=== PATIENT | male | born 1965 | race Caucasian/White ===

== ENCOUNTER 2017-02-24 19:04 | Emergency (ER) | payer BC, OTHER ==
[~2017-02-24] VITALS: Ht 177.8 cm; Wt 75.8 kg
[2017-02-24] MEDS ORDERED: SODIUM CHLORIDE FLUSH 10ML SYR IVF ONE (19:30)
[2017-02-24] MEDS ORDERED: SODIUM CHLORIDE 0.9% 1,000ML IVBOLUS ONE (19:30)
[2017-02-24] MEDS ORDERED: ONDANSETRON 2MG/ML, 2ML IVPush ONE ×2 (19:30→20:30)
[2017-02-24 19:55] LABS: PATH.CAST-FLAG NOT PRESENT; SPERM-FLAG NOT PRESENT; SRC-FLAG NOT PRESENT; XTAL-FLAG NOT PRESENT; YLC-FLAG NOT PRESENT
[2017-02-24 20:03] LABS: HEMATOCRIT 51.4 % (39.2-51.8); HEMOGLOBIN 17.6 g/dL (13.7-18.0); WHITE BLOOD COUNT 9.8 x10^3/uL (3.4-10)
[2017-02-24 20:10] LABS: BLOOD UREA NITROGEN 21 mg/dL (7-18)
[2017-02-24 20:11] LABS: ASPARTATE AMINO TRANSFERASE 17 U/L (15-37)
[2017-02-24] MEDS ORDERED: KETOROLAC 30 MG/1 ML ONE (20:28)
[2017-02-24] MEDS ORDERED: KETOROLAC 30 MG/1 ML IVPush ONE (20:30)
[2017-02-24 21:58] VITALS: BP 115/69
== END 2017-02-24 22:01 | disposition home or self-care (01) ==
LOC: ED 21:45
DX: K80.20 Calculus of gallbladder without cholecystitis without obstruction (principal)
CPT/HCPCS: 36415; 74176; 76700; 80053; 81001; 83690; 85025; 96361; 96374; 99285; J1885; J7030

== ENCOUNTER 2019-05-25 22:16 | Emergency (ER) | payer OTHER ==
[~2019-05-25] VITALS: Ht 177.8 cm; Wt 81.5 kg
--- NOTE | 2019-05-25 23:12 | NUR ---
THIS IS A 54Y M THAT COMES IN TONIGHT W/ C/O "STABBING BACK PAIN" LASTING 3WKS. PT STS PAIN WORSENED LAST NIGHT AND HE HAS BEEN UNABLE TO GET RELIEF. PT RESTING ON RADHA MANNING, FRIEND AT BEDSIDE. CALL LIGHT IN REACH
[2019-05-25] MEDS ORDERED: DIAZEPAM 5 MG TABLET ONE (23:29)
[2019-05-25] MEDS ORDERED: KETOROLAC 60 MG/2 ML ONE (23:29)
[2019-05-25] MEDS ORDERED: HYDROcodone/APAP 5/325 TABLET ONE (23:29)
[2019-05-25] MEDS ORDERED: KETOROLAC 30 MG/1 ML IM ONE (23:30)
[2019-05-25] MEDS ORDERED: HYDROcodone/APAP 5/325 TABLET PO ONE (23:30)
[2019-05-25] MEDS ORDERED: DIAZEPAM 5 MG TABLET PO ONE (23:30)
--- NOTE | 2019-05-25 23:30 | NUR ---
PT TO XRAY
[2019-05-25 23:32] LABS: BASOPHILS # (AUTO) 0.02 x10^3/uL (0-0.1); BASOPHILS % (AUTO) 0 % (0-1); EOSINOPHILS # (AUTO) 0.12 x10^3/uL (0-0.4); EOSINOPHILS % (AUTO) 1 % (1-7); LYMPHOCYTES # (AUTO) 1.52 x10^3/uL (1-3.4); LYMPHOCYTES % (AUTO) 15 % (22-44); MD NO; MEAN CORPUSCULAR HEMOGLOBIN 31.7 pg (27.5-34.5); MEAN CORPUSCULAR VOLUME 93.3 fL (81-97); MEAN PLATELET VOLUME 7.8 fL (7.4-10.4); MONOCYTES # (AUTO) 1.28 x10^3/uL (0.2-0.8); MONOCYTES % (AUTO) 13 % (2-9); NEUTROPHILS # (AUTO) 7.19 x10^3/uL (1.8-6.8); NEUTROPHILS % (AUTO) 71 % (42-75); PLATELET COUNT 310 x10^3/uL (130-400); RED BLOOD COUNT 4.42 x10^6/uL (4.38-5.82); RED CELL DISTRIBUTION WIDTH 15.9 % (9.4-14.8)
[2019-05-25 23:40] VITALS: BP 133/76
--- NOTE | 2019-05-25 23:40 | NUR ---
PT MEDICATED PER MAR, VSS, NADN
[2019-05-25 23:41] LABS: ALANINE AMINOTRANSFERASE 189 U/L (12-78); ALBUMIN 2.6 g/dL (3.4-5.0); ANION GAP 5 mmol/L (5-15); CALCIUM 8.2 mg/dL (8.5-10.1); CHLORIDE 105 mmol/L (98-107); CREATININE 0.82 mg/dL (0.7-1.3)
[2019-05-25 23:44] LABS: ALKALINE PHOSPHATASE 204 U/L (45-117); BILIRUBIN,TOTAL 0.6 mg/dL (0.2-1.0); TOTAL PROTEIN 7.6 g/dL (6.4-8.2)
== END 2019-05-26 01:20 | disposition home or self-care (01) ==
LOC: ED 23:17
DX: S39.012A Strain of muscle, fascia and tendon of lower back, initial encounter (principal); S29.012A Strain of muscle and tendon of back wall of thorax, initial encounter; X58.XXXA Exposure to other specified factors, initial encounter; Y93.89 Activity, other specified; Y92.89 Other specified places as the place of occurrence of the external cause; Y99.8 Other external cause status
CPT/HCPCS: 36415; 72110; 80053; 85025; 93005; 96372; 99284; J1885

== ENCOUNTER 2019-05-26 20:12 | Inpatient (IN) | payer OTHER ==
[~2019-05-26] VITALS: Ht 177.8 cm; Wt 81.3 kg
--- NOTE | 2019-05-26 20:47 | NUR ---
Pt moved to room
--- NOTE | 2019-05-26 21:00 | NUR ---
Patient came to ER [facility] c/o CP. Patient came to the ER yesterday for back pain. He states after he was discharged, he developed CP which has continued on into [facility]. The pain is increasing and he describes it as a heaviness. Patient has never had this pain before. He states he is also achy all over his body. Denies fevers. Addendum: 05/26/19 at 2103 by [email or web address] Patient appears uncomfortable but in no distress. Respirations even and unlabored.
[2019-05-26] MEDS ORDERED: MORPHINE SULFATE 4 MG/ML, 1ML ONE ×2 (21:40→22:05)
[2019-05-26] MEDS: MORPHINE SULFATE 4 MG/ML, 1ML IVPush PRN ×2 (21:42→22:11)
[2019-05-26 21:45] LABS: BASOPHILS # (AUTO) 0.02 x10^3/uL (0-0.1); BASOPHILS % (AUTO) 0 % (0-1); EOSINOPHILS % (AUTO) 1 % (1-7); LYMPHOCYTES # (AUTO) 1.42 x10^3/uL (1-3.4); LYMPHOCYTES % (AUTO) 17 % (22-44); MD NO; MEAN CORPUSCULAR HEMOGLOBIN 31.4 pg (27.5-34.5); MEAN CORPUSCULAR HGB CONC 33.7 g/dL (33.2-36.2); MEAN CORPUSCULAR VOLUME 93.4 fL (81-97); MEAN PLATELET VOLUME 7.6 fL (7.4-10.4); MONOCYTES # (AUTO) 1.11 x10^3/uL (0.2-0.8); MONOCYTES % (AUTO) 14 % (2-9); NEUTROPHILS # (AUTO) 5.53 x10^3/uL (1.8-6.8); NEUTROPHILS % (AUTO) 68 % (42-75); PLATELET COUNT 334 x10^3/uL (130-400); RED BLOOD COUNT 4.49 x10^6/uL (4.38-5.82); RED CELL DISTRIBUTION WIDTH 16.3 % (9.4-14.8)
--- NOTE | 2019-05-26 21:49 | NUR ---
PT C/O CP PAIN AND "ALL OVER BODY PAIN" 03/02. WAS SEEN HERE LAST NIGHT FOR BACK PAIN. STATES IT HAS BECOME PROGRESSIVELY WORSE. PT ROCKING BACK AND FORTH IN BED. SINUS TACHY ON MONITOR. IV ACCESS OBTAINED AND LABS SENT. PT MEDICATED PER JUL FOR PAIN. PT AWARE OF UA. NO FURTHER NEEDS EXPRESSED AT THIS TIME. CALL LIGHT IN REACH.
[2019-05-26 21:57] LABS: ALANINE AMINOTRANSFERASE 180 U/L (12-78); ALBUMIN 2.4 g/dL (3.4-5.0); ANION GAP 4 mmol/L (5-15); CHLORIDE 105 mmol/L (98-107); CREATININE 0.85 mg/dL (0.7-1.3)
[2019-05-26] MEDS ORDERED: SODIUM CHLORIDE 0.9% 1,000ML IVBOLUS ONE (22:00)
[2019-05-26 22:01] LABS: ALKALINE PHOSPHATASE 208 U/L (45-117); BILIRUBIN,TOTAL 0.6 mg/dL (0.2-1.0); TOTAL PROTEIN 7.4 g/dL (6.4-8.2); TROPONIN I < 0.015 ng/mL (0.000-0.045)
--- NOTE | 2019-05-26 22:05 | NUR ---
Roommate, Juan Andino, phone number [phone].
--- NOTE | 2019-05-26 22:10 | NUR ---
pt c/o continued pain. medicated with repeat morphine dose. remains sinus tachy on monitor. call light in reach.
[2019-05-26] MEDS ORDERED: SODIUM CHLORIDE FLUSH 10ML SYR IVF ONE (22:30)
--- NOTE | 2019-05-26 23:09 | NUR ---
Pt up to BR with steady gait. UA collected and walked to lab. Pt states pain has improved. Resting with eyes closed on gurney. VSS. Call light in reach.
[2019-05-26 23:34] LABS: AMPHETAMINE SCREEN, URINE Negative (Negative); BARBITURATE SCREEN, URINE Negative (Negative); BENZODIAZEPINE SCREEN, URINE Negative (Negative); CANNABINOID SCREEN, URINE Negative (Negative); COCAINE SCREEN, URINE Negative (Negative); METHADONE SCREEN, URINE Negative (Negative); OPIATE SCREEN, URINE Positive (Negative)
--- NOTE | 2019-05-26 23:39 | NUR ---
Dr Jorgensen at bedside to [facility] for admission.
[2019-05-26] MEDS ORDERED: OMNIPAQUE 350 MG/ML, 100ML BOTTLE ONE (23:52)
[2019-05-27] MEDS ORDERED: ONDANSETRON 2MG/ML, 2ML IVPush PRN
[2019-05-27] MEDS ORDERED: hydrALAzine 20 MG/ML, 1ML IVPush PRN
[2019-05-27] MEDS: NICOTINE 14MG/24 HR PATCH.TD24 TD SCH
[2019-05-27 00:27] VITALS: BP 125/82
[2019-05-27 00:29] LABS: INTERNATIONAL NORMALIZED RATIO 1.04 (0.93-1.1); PROTHROMBIN TIME 10.9 Seconds (9.6-11.5)
[2019-05-27 00:30] LABS: MICROSCOPIC NOT IND
[2019-05-27 00:38] LABS: CULTURE INDICATED? NO
[2019-05-27] MEDS: LACTATED RINGERS 1,000 ML IV SCH ×3 (01:55→21:36)
[2019-05-27] MEDS: HYDROmorphone 2 MG/ML, 1ML IVPush PRN ×3 (03:12→21:35)
[2019-05-27 05:00] LABS: BASOPHILS # (AUTO) 0.03 x10^3/uL (0-0.1); BASOPHILS % (AUTO) 0 % (0-1); EOSINOPHILS # (AUTO) 0.08 x10^3/uL (0-0.4); EOSINOPHILS % (AUTO) 1 % (1-7); LYMPHOCYTES # (AUTO) 1.44 x10^3/uL (1-3.4); LYMPHOCYTES % (AUTO) 16 % (22-44); MD NO; MEAN CORPUSCULAR HEMOGLOBIN 31.4 pg (27.5-34.5); MEAN CORPUSCULAR HGB CONC 33.7 g/dL (33.2-36.2); MEAN CORPUSCULAR VOLUME 93.3 fL (81-97); MEAN PLATELET VOLUME 7.7 fL (7.4-10.4); MONOCYTES # (AUTO) 1.09 x10^3/uL (0.2-0.8); MONOCYTES % (AUTO) 12 % (2-9); NEUTROPHILS # (AUTO) 6.57 x10^3/uL (1.8-6.8); NEUTROPHILS % (AUTO) 71 % (42-75); PLATELET COUNT 303 x10^3/uL (130-400); RED BLOOD COUNT 4.45 x10^6/uL (4.38-5.82); RED CELL DISTRIBUTION WIDTH 16.2 % (9.4-14.8)
[2019-05-27 05:07] LABS: CHLORIDE 106 mmol/L (98-107)
[2019-05-27 05:16] LABS: ALANINE AMINOTRANSFERASE 183 U/L (12-78); ALBUMIN 2.3 g/dL (3.4-5.0); ALKALINE PHOSPHATASE 198 U/L (45-117); ANION GAP 5 mmol/L (5-15); CALCIUM 7.6 mg/dL (8.5-10.1); CHOL/HDL RATIO 22.4; CHOLESTEROL, TOTAL 112 mg/dL (140-239); CREATININE 0.77 mg/dL (0.7-1.3); HDL CHOL % 4 % (26-37); HDL CHOLESTEROL (DIRECT) 5 mg/dL (40-60); LDL CHOLESTEROL,CALCULATED 69 mg/dL (54-169); LDL/HDL RATIO 13.8 (0.5-3.0); TOTAL PROTEIN 7.1 g/dL (6.4-8.2); TRIGLYCERIDES 188 mg/dL (50-200); TROPONIN I 0.016 ng/mL (0.000-0.045); VLDL CHOLESTEROL 38 mg/dL (0-25)
[2019-05-27 07:55] VITALS: BP 128/86
[2019-05-27] MEDS: SENNA/DOCUSATE TABLET PO SCH (09:28)
[2019-05-27 10:54] LABS: TROPONIN I < 0.015 ng/mL (0.000-0.045)
[2019-05-27 14:31] VITALS: BP 109/74
[2019-05-27] MEDS: OXYcodone IR 5MG TABLET PO PRN (15:45)
[2019-05-27 19:36] VITALS: BP 131/80
[2019-05-28 01:03] VITALS: BP 132/97
[2019-05-28] MEDS: HYDROmorphone 2 MG/ML, 1ML IVPush PRN ×5 (01:57→23:57)
[2019-05-28] MEDS: LACTATED RINGERS 1,000 ML IV SCH (05:24)
[2019-05-28 09:42] VITALS: BP 129/79
[2019-05-28] MEDS: SENNA/DOCUSATE TABLET PO SCH (10:02)
[2019-05-28] MEDS ORDERED: OMNIPAQUE 350 MG/ML, 100ML BOTTLE ONE (11:56)
[2019-05-28] MEDS: OXYcodone IR 5MG TABLET PO PRN ×2 (12:17→17:27)
[2019-05-28 12:44] LABS: HCT (SEDRATE) 43.5 % (39.2-51.8)
[2019-05-28 15:18] VITALS: BP 105/70
[2019-05-28 19:22] VITALS: BP 111/73
[2019-05-28] MEDS: NICOTINE 14MG/24 HR PATCH.TD24 TD SCH ×2 (20:29)
[2019-05-29 01:34] VITALS: BP 114/77
[2019-05-29] MEDS: OXYcodone IR 5MG TABLET PO PRN ×2 (03:26→19:28)
[2019-05-29 06:08] LABS: BASOPHILS # (AUTO) 0.02 x10^3/uL (0-0.1); BASOPHILS % (AUTO) 0 % (0-1); EOSINOPHILS # (AUTO) 0.07 x10^3/uL (0-0.4); EOSINOPHILS % (AUTO) 1 % (1-7); LYMPHOCYTES # (AUTO) 1.39 x10^3/uL (1-3.4); LYMPHOCYTES % (AUTO) 18 % (22-44); MD NO; MEAN CORPUSCULAR HEMOGLOBIN 31.3 pg (27.5-34.5); MEAN CORPUSCULAR HGB CONC 33.7 g/dL (33.2-36.2); MEAN CORPUSCULAR VOLUME 92.8 fL (81-97); MEAN PLATELET VOLUME 7.6 fL (7.4-10.4); MONOCYTES # (AUTO) 1.23 x10^3/uL (0.2-0.8); MONOCYTES % (AUTO) 16 % (2-9); NEUTROPHILS # (AUTO) 5.16 x10^3/uL (1.8-6.8); NEUTROPHILS % (AUTO) 66 % (42-75); PLATELET COUNT 283 x10^3/uL (130-400); RED BLOOD COUNT 4.67 x10^6/uL (4.38-5.82); RED CELL DISTRIBUTION WIDTH 16.6 % (9.4-14.8)
[2019-05-29 06:12] LABS: INTERNATIONAL NORMALIZED RATIO 1.08 (0.93-1.1); PROTHROMBIN TIME 11.3 Seconds (9.6-11.5)
[2019-05-29 06:14] LABS: ALBUMIN 2.3 g/dL (3.4-5.0); ANION GAP 4 mmol/L (5-15); CALCIUM 8.2 mg/dL (8.5-10.1); CHLORIDE 99 mmol/L (98-107)
[2019-05-29 06:20] LABS: ALANINE AMINOTRANSFERASE 171 U/L (12-78); ALKALINE PHOSPHATASE 215 U/L (45-117); BILIRUBIN,TOTAL 1.3 mg/dL (0.2-1.0); CREATININE 0.85 mg/dL (0.7-1.3); TOTAL PROTEIN 7.6 g/dL (6.4-8.2)
[2019-05-29 08:02] VITALS: BP 120/78
[2019-05-29] MEDS: HYDROmorphone 2 MG/ML, 1ML IVPush PRN ×5 (08:14→23:01)
[2019-05-29] MEDS: SENNA/DOCUSATE TABLET PO SCH (08:16)
[2019-05-29 13:43] VITALS: BP 97/63
[2019-05-29] MEDS ORDERED: FENTANYL PF 100 MCG/2ML ONE ×2 (15:38)
[2019-05-29] MEDS ORDERED: MIDAZOLAM 1 MG/ML, 5ML ONE ×2 (15:38→15:39)
[2019-05-29] MEDS ORDERED: NALOXONE 1 MG/ML, 2ML ONE (15:39)
[2019-05-29] MEDS ORDERED: FLUMAZENIL 0.1 MG/1 ML, 5ML ONE (15:39)
[2019-05-29 19:02] VITALS: BP 106/68
[2019-05-30 00:13] VITALS: BP 107/62
[2019-05-30] MEDS: OXYcodone IR 5MG TABLET PO PRN ×6 (00:23→20:43)
[2019-05-30 04:59] LABS: MEAN CORPUSCULAR HEMOGLOBIN 31.3 pg (27.5-34.5); MEAN CORPUSCULAR VOLUME 92.3 fL (81-97); MEAN PLATELET VOLUME 7.6 fL (7.4-10.4); PLATELET COUNT 266 x10^3/uL (130-400); RED BLOOD COUNT 4.47 x10^6/uL (4.38-5.82); RED CELL DISTRIBUTION WIDTH 16.3 % (9.4-14.8)
[2019-05-30 05:14] LABS: ALANINE AMINOTRANSFERASE 175 U/L (12-78); ALBUMIN 2.2 g/dL (3.4-5.0); ANION GAP 3 mmol/L (5-15); CALCIUM 8.1 mg/dL (8.5-10.1); CHLORIDE 96 mmol/L (98-107); CREATININE 1.04 mg/dL (0.7-1.3)
[2019-05-30 05:16] LABS: ALKALINE PHOSPHATASE 245 U/L (45-117); BILIRUBIN,TOTAL 1.7 mg/dL (0.2-1.0); TOTAL PROTEIN 7.4 g/dL (6.4-8.2)
[2019-05-30] MEDS: HYDROmorphone 2 MG/ML, 1ML IVPush PRN ×5 (05:35→20:44)
[2019-05-30 05:56] LABS: BASOPHILS # (AUTO) 0.04 x10^3/uL (0-0.1); BASOPHILS % (AUTO) 1 % (0-1); EOSINOPHILS # (AUTO) 0.13 x10^3/uL (0-0.4); EOSINOPHILS % (AUTO) 2 % (1-7); LYMPHOCYTES # (AUTO) 1.55 x10^3/uL (1-3.4); LYMPHOCYTES % (AUTO) 18 % (22-44); MD SCAN; MONOCYTES % (AUTO) 18 % (2-9); NEUTROPHILS # (AUTO) 5.25 x10^3/uL (1.8-6.8); NEUTROPHILS % (AUTO) 62 % (42-75)
[2019-05-30 07:06] VITALS: BP 98/58
[2019-05-30] MEDS ORDERED: MAGNESIUM CITRATE 300ML ORAL SOL ONE (09:37)
[2019-05-30] MEDS: SENNA/DOCUSATE TABLET PO SCH (09:45)
[2019-05-30] MEDS ORDERED: MAGNESIUM CITRATE 300ML ORAL SOL PO ONE (10:00)
[2019-05-30 13:00] VITALS: BP 98/61
[2019-05-30 20:32] VITALS: BP 101/65
[2019-05-30] MEDS: NICOTINE 14MG/24 HR PATCH.TD24 TD SCH ×2 (22:43)
[2019-05-31] MEDS: OXYcodone IR 5MG TABLET PO PRN ×5 (00:44→20:43)
[2019-05-31] MEDS: HYDROmorphone 2 MG/ML, 1ML IVPush PRN ×4 (00:44→15:08)
[2019-05-31 02:19] VITALS: BP 110/73
[2019-05-31 06:33] LABS: BASOPHILS # (AUTO) 0.03 x10^3/uL (0-0.1); BASOPHILS % (AUTO) 0 % (0-1); EOSINOPHILS # (AUTO) 0.14 x10^3/uL (0-0.4); EOSINOPHILS % (AUTO) 2 % (1-7); LYMPHOCYTES # (AUTO) 1.36 x10^3/uL (1-3.4); LYMPHOCYTES % (AUTO) 18 % (22-44); MD NO; MEAN CORPUSCULAR HEMOGLOBIN 31.7 pg (27.5-34.5); MEAN CORPUSCULAR VOLUME 93.3 fL (81-97); MEAN PLATELET VOLUME 8.1 fL (7.4-10.4); MONOCYTES # (AUTO) 1.03 x10^3/uL (0.2-0.8); MONOCYTES % (AUTO) 13 % (2-9); NEUTROPHILS % (AUTO) 67 % (42-75); PLATELET COUNT 239 x10^3/uL (130-400); RED BLOOD COUNT 4.76 x10^6/uL (4.38-5.82); RED CELL DISTRIBUTION WIDTH 16.1 % (9.4-14.8)
[2019-05-31 06:41] LABS: % IRON SATURATION 28 % (20-55); ALANINE AMINOTRANSFERASE 210 U/L (12-78); ALBUMIN 2.3 g/dL (3.4-5.0); ANION GAP 2 mmol/L (5-15); CALCIUM 8.4 mg/dL (8.5-10.1); CHLORIDE 97 mmol/L (98-107); CREATININE 0.79 mg/dL (0.7-1.3); IRON LEVEL 67 mcg/dL (65-175); TOTAL IRON BINDING CAPACITY 241 mcg/dL (250-450)
[2019-05-31 06:46] LABS: ALKALINE PHOSPHATASE 299 U/L (45-117); BILIRUBIN,TOTAL 1.4 mg/dL (0.2-1.0); CREATINE KINASE, TOTAL 27 U/L (39-308); TOTAL PROTEIN 7.9 g/dL (6.4-8.2)
[2019-05-31 07:26] VITALS: BP 101/62
[2019-05-31] MEDS ORDERED: LACTULOSE 20 GM/30 ML UDC PO PRN ×2 (09:30→17:00)
[2019-05-31] MEDS ORDERED: BISACODYL 10 MG SUPP PR PRN (09:30)
[2019-05-31] MEDS ORDERED: DOCUSATE 100 MG CAPSULE ONE (10:34)
[2019-05-31] MEDS: SENNA/DOCUSATE TABLET PO SCH ×2 (10:40→20:44)
[2019-05-31 12:55] VITALS: BP 107/59
[2019-05-31 20:01] VITALS: BP 110/65
[2019-05-31] MEDS: MAGNESIUM HYDROXIDE 8%, 30ML UDC PO PRN (20:42)
[2019-05-31] MEDS: POLYETHYLENE GLYCOL 17 GM PACKET PO PRN (20:45)
[2019-05-31] MEDS: NICOTINE 14MG/24 HR PATCH.TD24 TD SCH (23:03)
[2019-06-01 00:48] VITALS: BP 106/71
[2019-06-01 07:40] LABS: BASOPHILS # (AUTO) 0.04 x10^3/uL (0-0.1); BASOPHILS % (AUTO) 0 % (0-1); EOSINOPHILS # (AUTO) 0.13 x10^3/uL (0-0.4); EOSINOPHILS % (AUTO) 1 % (1-7); LYMPHOCYTES # (AUTO) 1.56 x10^3/uL (1-3.4); LYMPHOCYTES % (AUTO) 16 % (22-44); MD NO; MEAN CORPUSCULAR HEMOGLOBIN 31.8 pg (27.5-34.5); MEAN CORPUSCULAR HGB CONC 33.9 g/dL (33.2-36.2); MEAN CORPUSCULAR VOLUME 93.7 fL (81-97); MEAN PLATELET VOLUME 8.2 fL (7.4-10.4); MONOCYTES # (AUTO) 1.19 x10^3/uL (0.2-0.8); MONOCYTES % (AUTO) 13 % (2-9); NEUTROPHILS # (AUTO) 6.58 x10^3/uL (1.8-6.8); NEUTROPHILS % (AUTO) 69 % (42-75); PLATELET COUNT 270 x10^3/uL (130-400); RED BLOOD COUNT 4.66 x10^6/uL (4.38-5.82); RED CELL DISTRIBUTION WIDTH 16.2 % (9.4-14.8)
[2019-06-01 07:41] LABS: ALBUMIN 2.3 g/dL (3.4-5.0); CHLORIDE 100 mmol/L (98-107)
[2019-06-01 07:45] LABS: ALANINE AMINOTRANSFERASE 227 U/L (12-78); ALKALINE PHOSPHATASE 349 U/L (45-117); BILIRUBIN,TOTAL 1.2 mg/dL (0.2-1.0); CALCIUM 8.3 mg/dL (8.5-10.1); CREATININE 0.72 mg/dL (0.7-1.3)
[2019-06-01 07:57] LABS: ANION GAP 4 mmol/L (5-15)
[2019-06-01 08:09] VITALS: BP 117/71
[2019-06-01] MEDS ORDERED: DOCUSATE 100 MG CAPSULE PO SCH (09:00)
[2019-06-01] MEDS: SENNA/DOCUSATE TABLET PO SCH ×2 (09:23→20:11)
[2019-06-01] MEDS: DOCUSATE 50 MG/5 ML, 10ML UDC NG SCH (09:23)
[2019-06-01] MEDS: HYDROmorphone 2 MG/ML, 1ML IVPush PRN ×2 (09:24→20:11)
[2019-06-01] MEDS: OXYcodone IR 5MG TABLET PO PRN (17:27)
[2019-06-01 17:33] VITALS: BP 127/82
[2019-06-01] MEDS: NICOTINE 14MG/24 HR PATCH.TD24 TD SCH (21:19)
[2019-06-02 00:55] VITALS: BP 130/87
[2019-06-02] MEDS: HYDROmorphone 2 MG/ML, 1ML IVPush PRN (02:49)
[2019-06-02 07:20] LABS: ALANINE AMINOTRANSFERASE 220 U/L (12-78); ALBUMIN 2.3 g/dL (3.4-5.0); ANION GAP 2 mmol/L (5-15); CHLORIDE 101 mmol/L (98-107); CREATININE 0.84 mg/dL (0.7-1.3)
[2019-06-02 07:23] LABS: ALKALINE PHOSPHATASE 359 U/L (45-117); BILIRUBIN,TOTAL 0.8 mg/dL (0.2-1.0); TOTAL PROTEIN 8.2 g/dL (6.4-8.2)
[2019-06-02] MEDS: OXYcodone IR 5MG TABLET PO PRN ×2 (07:46→20:41)
[2019-06-02 07:51] VITALS: BP 133/86
[2019-06-02] MEDS: SENNA/DOCUSATE TABLET PO SCH (08:59)
[2019-06-02] MEDS: DOCUSATE 50 MG/5 ML, 10ML UDC NG SCH (08:59)
[2019-06-02] MEDS ORDERED: HYDROmorphone 2 MG/ML, 1ML IVPush PRN (10:30)
[2019-06-02] MEDS: HYDROmorphone 2MG TABLET PO PRN ×2 (10:37→16:52)
[2019-06-02 13:42] VITALS: BP 131/85
[2019-06-02 19:56] VITALS: BP 115/74
[2019-06-02] MEDS: MAGNESIUM HYDROXIDE 8%, 30ML UDC PO PRN (20:40)
[2019-06-02] MEDS: POLYETHYLENE GLYCOL 17 GM PACKET PO PRN (20:42)
[2019-06-03 00:44] VITALS: BP 129/79
[2019-06-03 04:41] LABS: ALANINE AMINOTRANSFERASE 199 U/L (12-78); ALBUMIN 2.3 g/dL (3.4-5.0); ANION GAP 5 mmol/L (5-15); CALCIUM 8.3 mg/dL (8.5-10.1); CHLORIDE 102 mmol/L (98-107); CREATININE 0.81 mg/dL (0.7-1.3)
[2019-06-03 04:44] LABS: ALKALINE PHOSPHATASE 305 U/L (45-117); BILIRUBIN,TOTAL 0.7 mg/dL (0.2-1.0); TOTAL PROTEIN 8.8 g/dL (6.4-8.2)
[2019-06-03 05:02] LABS: BASOPHILS # (AUTO) 0.03 x10^3/uL (0-0.1); BASOPHILS % (AUTO) 0 % (0-1); EOSINOPHILS # (AUTO) 0.07 x10^3/uL (0-0.4); EOSINOPHILS % (AUTO) 1 % (1-7); LYMPHOCYTES # (AUTO) 1.78 x10^3/uL (1-3.4); LYMPHOCYTES % (AUTO) 15 % (22-44); MD NO; MEAN CORPUSCULAR HEMOGLOBIN 31.4 pg (27.5-34.5); MEAN CORPUSCULAR HGB CONC 33.7 g/dL (33.2-36.2); MEAN CORPUSCULAR VOLUME 93.1 fL (81-97); MEAN PLATELET VOLUME 7.6 fL (7.4-10.4); MONOCYTES # (AUTO) 1.15 x10^3/uL (0.2-0.8); MONOCYTES % (AUTO) 9 % (2-9); NEUTROPHILS # (AUTO) 9.21 x10^3/uL (1.8-6.8); NEUTROPHILS % (AUTO) 75 % (42-75); PLATELET COUNT 363 x10^3/uL (130-400); RED BLOOD COUNT 4.81 x10^6/uL (4.38-5.82); RED CELL DISTRIBUTION WIDTH 17.2 % (9.4-14.8)
[2019-06-03 08:00] VITALS: BP 118/73
[2019-06-03] MEDS: OXYcodone IR 5MG TABLET PO PRN (08:18)
[2019-06-03] MEDS: SENNA/DOCUSATE TABLET PO SCH (08:19)
[2019-06-03] MEDS: DOCUSATE 50 MG/5 ML, 10ML UDC NG SCH (08:19)
[2019-06-03] MEDS ORDERED: FLU VACC QS2019-20 36MOS UP/PF 0.5 ML IM-VACC ONE (10:30)
[2019-06-03] MEDS ORDERED: LACT20SO13 PO (12:28)
[2019-06-03] MEDS ORDERED: PRED10TA PO (12:28)
== END 2019-06-03 13:20 | disposition home or self-care (01) | DRG 803 ==
LOC: ED 21:17 → EDIP 23:12 → 4WST 05-27 00:14 → DCLOUNGE 06-03 13:02
PROVIDERS: ADMIT Family Medicine; ATTEND Internal Medicine
PROC: 07BD3ZX Excision of Aortic Lymphatic, Percutaneous Approach, Diagnostic (ICD-10-PCS; principal; 2019-05-29)
DX: R59.0 Localized enlarged lymph nodes (principal); B19.10 Unspecified viral hepatitis B without hepatic coma; R16.1 Splenomegaly, not elsewhere classified; F10.20 Alcohol dependence, uncomplicated; F17.210 Nicotine dependence, cigarettes, uncomplicated; K59.00 Constipation, unspecified; R73.9 Hyperglycemia, unspecified; M13.0 Polyarthritis, unspecified; M54.5 Low back pain; M54.6 Pain in thoracic spine; Z23 Encounter for immunization
CPT/HCPCS: 36415; 49180; 71045; 71275; 72146; 72148; 74177; 77012; 78306; 80053; 80061; 80074; 80307; 81003; 82550; 83036; 83540; 83550; 83690; 83735; 83880; 84100; 84436; 84443; 84484; 85025; 85379; 85610; 85651; 87806; 90686; 93005; 99156; 99157; 99285; G0378; J1170; J2250; J3010; Q9967; A9503; C9898; G0475; J2270; J2310; J7030; J7120; J7512

== ENCOUNTER 2019-06-14 17:55 | Inpatient (IN) | payer OTHER ==
[~2019-06-14] VITALS: Ht 177.8 cm; Wt 74.0 kg
[~2019-06-14 17:55] MED LIST: LACT20SO13 PO; PRED10TA PO
[2019-06-14] MEDS ORDERED: HYDROmorphone 1 MG/ML, 1ML INJ IV ONE ×2 (20:00→23:00)
[2019-06-14] MEDS ORDERED: ONDANSETRON 2MG/ML, 2ML IVPush ONE (20:00)
[2019-06-14] MEDS ORDERED: SODIUM CHLORIDE 0.9% 1,000ML IVBOLUS ONE (20:00)
[2019-06-14] MEDS ORDERED: ONDANSETRON 2MG/ML, 2ML ONE (20:10)
[2019-06-14] MEDS ORDERED: HYDROmorphone 1 MG/ML, 1ML INJ ONE ×2 (20:10→23:01)
--- NOTE | 2019-06-14 20:38 | NUR ---
PT MEDICATED PER MAR. IVF INFUSING. PT AWARE UA IS NEEDED. UNABLE TO PRODUCE SAMPLE AT THIS TIME.
[2019-06-14 20:47] LABS: MEAN CORPUSCULAR HGB CONC 33.6 g/dL (33.2-36.2); MEAN CORPUSCULAR VOLUME 92.1 fL (81-97); MEAN PLATELET VOLUME 8.3 fL (7.4-10.4); PLATELET COUNT 299 x10^3/uL (130-400); RED BLOOD COUNT 5.15 x10^6/uL (4.38-5.82); RED CELL DISTRIBUTION WIDTH 17.5 % (9.4-14.8)
[2019-06-14 20:50] LABS: ALANINE AMINOTRANSFERASE 154 U/L (12-78); ALBUMIN 2.5 g/dL (3.4-5.0); ANION GAP 6 mmol/L (5-15); CALCIUM 8.7 mg/dL (8.5-10.1); CHLORIDE 101 mmol/L (98-107); CREATININE 0.87 mg/dL (0.7-1.3)
[2019-06-14 20:52] LABS: ALKALINE PHOSPHATASE 341 U/L (45-117); BILIRUBIN,TOTAL 1.6 mg/dL (0.2-1.0); TOTAL PROTEIN 8.2 g/dL (6.4-8.2)
[2019-06-14 21:11] LABS: BASOPHILS # (AUTO) 0.03 x10^3/uL (0-0.1); BASOPHILS % (AUTO) 0 % (0-1); EOSINOPHILS # (AUTO) 0.15 x10^3/uL (0-0.4); EOSINOPHILS % (AUTO) 1 % (1-7); LYMPHOCYTES # (AUTO) 1.44 x10^3/uL (1-3.4); LYMPHOCYTES % (AUTO) 10 % (22-44); MD SCAN; MONOCYTES # (AUTO) 1.34 x10^3/uL (0.2-0.8); MONOCYTES % (AUTO) 10 % (2-9); NEUTROPHILS # (AUTO) 11.18 x10^3/uL (1.8-6.8); NEUTROPHILS % (AUTO) 79 % (42-75)
--- NOTE | 2019-06-14 21:18 | NUR ---
UA OBTAINED AND TUBED TO LAB.
[2019-06-14 21:29] LABS: MICROSCOPIC NOT IND
[2019-06-14 21:34] LABS: CULTURE INDICATED? NO
--- NOTE | 2019-06-14 22:07 | NUR ---
IN TO CHECK ON PT. PT STATES HIS PAIN IS TOLERABLE. PT REPOSITIONED IN BED FOR COMFORT. POC DISCUSSED. AWARE LABS ARE PENDING. PT DENIES CURRENT NEEDS. CALL LIGHT ON LAP.
[2019-06-14 22:36] LABS: HCT (SEDRATE) 47.4 % (39.2-51.8)
--- NOTE | 2019-06-14 23:04 | NUR ---
PT MEDICATED PER JUL. ORDERED ADDITIONAL LABS. AWAITING LAB RESULTS. PT DENIES FURTHER NEEDS AT THIS TIME.
[2019-06-14] MEDS ORDERED: PRED10TA PO (23:36)
[2019-06-15 00:39] VITALS: BP 112/78
[2019-06-15] MEDS ORDERED: DIPHENHYDRAMINE 25 MG CAPSULE PO PRN (01:00)
[2019-06-15] MEDS ORDERED: hydrALAzine 20 MG/ML, 1ML IVPush PRN (01:00)
[2019-06-15] MEDS ORDERED: ONDANSETRON ODT 4 MG PO PRN (01:00)
[2019-06-15] MEDS ORDERED: TEMAZEPAM 15 MG CAPSULE PO PRN (01:00)
[2019-06-15] MEDS ORDERED: GABAPENTIN 300 MG CAPSULE PO PRN (01:00)
[2019-06-15] MEDS ORDERED: DOCUSATE 100 MG CAPSULE PO PRN (01:00)
[2019-06-15] MEDS: morphine SULFATE 10 MG/ML, 1ML IVPush PRN ×3 (03:12→17:07)
[2019-06-15 07:42] VITALS: BP 106/70
[2019-06-15 13:55] VITALS: BP 107/68
[2019-06-15 15:06] LABS: HCT (SEDRATE) 41.8 % (39.2-51.8)
[2019-06-15] MEDS ORDERED: BICILLIN-LA 2,400,000 UNITS/4 ML IM ONE (16:00)
[2019-06-15 19:37] VITALS: BP 116/81
[2019-06-15] MEDS ORDERED: NAPROXEN 500 MG TABLET PO SCH (21:00)
[2019-06-16 01:42] VITALS: BP 95/66
[2019-06-16 06:15] LABS: CHLORIDE 101 mmol/L (98-107); MEAN CORPUSCULAR HEMOGLOBIN 31.5 pg (27.5-34.5); MEAN CORPUSCULAR HGB CONC 33.9 g/dL (33.2-36.2); MEAN CORPUSCULAR VOLUME 92.8 fL (81-97); RED BLOOD COUNT 4.61 x10^6/uL (4.38-5.82); RED CELL DISTRIBUTION WIDTH 17.5 % (9.4-14.8)
[2019-06-16 06:31] LABS: ANION GAP 2 mmol/L (5-15); CALCIUM 8.4 mg/dL (8.5-10.1); CREATININE 0.99 mg/dL (0.7-1.3)
[2019-06-16 06:50] LABS: BASOPHILS # (AUTO) 0.04 x10^3/uL (0-0.1); BASOPHILS % (AUTO) 0 % (0-1); EOSINOPHILS # (AUTO) 0.02 x10^3/uL (0-0.4); EOSINOPHILS % (AUTO) 0 % (1-7); LYMPHOCYTES # (AUTO) 1.64 x10^3/uL (1-3.4); LYMPHOCYTES % (AUTO) 9 % (22-44); MD SCAN; MEAN PLATELET VOLUME 8.9 fL (7.4-10.4); MONOCYTES # (AUTO) 1.83 x10^3/uL (0.2-0.8); MONOCYTES % (AUTO) 10 % (2-9); NEUTROPHILS # (AUTO) 14.02 x10^3/uL (1.8-6.8); NEUTROPHILS % (AUTO) 80 % (42-75); PLATELET COUNT 209 x10^3/uL (130-400)
[2019-06-16 07:17] VITALS: BP 97/65
[2019-06-16] MEDS ORDERED: OXYcodone IR 5MG TABLET PO PRN (07:30)
[2019-06-16] MEDS: SODIUM CHLORIDE 0.9% 1,000 ML IV SCH ×2 (08:49→16:57)
[2019-06-16] MEDS: morphine SULFATE 10 MG/ML, 1ML IVPush PRN ×3 (08:49→18:45)
[2019-06-16] MEDS: ENOXAPARIN 40 MG/0.4 ML SQ SCH (14:00)
[2019-06-16 14:09] VITALS: BP 105/69
[2019-06-16 19:42] VITALS: BP 116/67
[2019-06-17] MEDS: morphine SULFATE 10 MG/ML, 1ML IVPush PRN ×2 (00:26→07:50)
[2019-06-17 00:29] VITALS: BP 99/62
[2019-06-17] MEDS: SODIUM CHLORIDE 0.9% 1,000 ML IV SCH (00:29)
[2019-06-17] MEDS ORDERED: SODIUM CHLORIDE 0.9% 1,000 ML IV SCH (07:30)
[2019-06-17 07:58] VITALS: BP 103/68
[2019-06-17] MEDS ORDERED: NAPROXEN 500 MG TABLET PO PRN (09:30)
[2019-06-17] MEDS ORDERED: POLYETHYLENE GLYCOL 17 GM PACKET PO ONE (09:30)
[2019-06-17] MEDS: ENOXAPARIN 40 MG/0.4 ML SQ SCH (14:00)
[2019-06-17] MEDS ORDERED: GABA300C10 PO (14:21)
[2019-06-17] MEDS ORDERED: NAPR-856 PO (14:21)
== END 2019-06-17 17:53 | disposition home or self-care (01) | DRG 868 ==
LOC: ED 19:45 → EDIP 06-15 00:19 → 3N 06-15 00:34
PROVIDERS: ADMIT Internal Medicine; ATTEND Internal Medicine
DX: A51.49 Other secondary syphilitic conditions (principal); B19.10 Unspecified viral hepatitis B without hepatic coma; E87.1 Hypo-osmolality and hyponatremia; D72.829 Elevated white blood cell count, unspecified; G61.9 Inflammatory polyneuropathy, unspecified; I10 Essential (primary) hypertension; J45.909 Unspecified asthma, uncomplicated; K59.00 Constipation, unspecified; R59.9 Enlarged lymph nodes, unspecified; K80.20 Calculus of gallbladder without cholecystitis without obstruction; K21.9 Gastro-esophageal reflux disease without esophagitis; T38.0X5A Adverse effect of glucocorticoids and synthetic analogues, initial encounter; Z72.0 Tobacco use; Z80.42 Family history of malignant neoplasm of prostate; Z80.8 Family history of malignant neoplasm of other organs or systems; Z86.79 Personal history of other diseases of the circulatory system; Z87.09 Personal history of other diseases of the respiratory system
CPT/HCPCS: 36415; 71045; 76700; 80048; 80053; 81003; 82550; 83605; 84145; 85025; 85651; 86038; 86140; 86225; 86235; 86430; 86431; 86592; 86780; 87040; 87491; 87517; 87591; 87806; 93005; 96361; 96374; 96375; 96376; 99285; G0378; J0561; J1170; J2405; G0475; J2270; J7030; J7512